=== PATIENT | male | born 1940 | race Caucasian/White ===

== ENCOUNTER → 2019-08-15 | Outpatient (CLI) | payer OTHER ==
[~2019-08-15] MED LIST: ADULT LOW DOSE81 MG PO; ALDACTONE25 MG PO; ALEVE220 M1 PO; ALLEGRA-D 12 H1 EAC1 PO; ALLEGRA-D 24 H1 EACH PO; AMLODIPINE BESY10 MG PO; AUGMENTIN 875875 M1 PO; BENZONATATE100 MG PO; CENTRUM SILVER1 EAC1 PO; COREG6.25 MG PO; COZAAR 25 MG TA25 M2 PO; EDARBYCLOR 40-1 EACH PO; FISH OIL 1,0001 EAC5 PO; FLONASE 0.05%50 MCG NASAL; GLUCOPHAGE500 MG PO; HCTZ PO; LASIX 40 MG TAB40 M2 PO; NICOTINE TRANSD21 M1 TD; NICOTINE TRANSD21 M1 TRANSDERM; POTASSIUM20 PO; PRAVACHOL40 MG PO; PROAIR HFA8.5 GM PO; QUINAPRIL 20 MG20 MG PO; STIOLTO RESPIMAT4 GM IH; TESSALON PERLE100 MG PO; VYTORIN 10-401 EACH PO; XANAX 0.25 MG0.25 MG PO; XOPENEX 0.63 MG/3 M1 INH; ZETIA10 MG PO; ZOSYN 3.3753.375 GM IV
== END ==
LOC: SJCVC 11:21
DX: R94.31 Abnormal electrocardiogram [ECG] [EKG] (principal); I25.10 Atherosclerotic heart disease of native coronary artery without angina pectoris; I11.0 Hypertensive heart disease with heart failure; I50.9 Heart failure, unspecified; I42.9 Cardiomyopathy, unspecified; I34.0 Nonrheumatic mitral (valve) insufficiency; E78.00 Pure hypercholesterolemia, unspecified; I65.23 Occlusion and stenosis of bilateral carotid arteries; I73.9 Peripheral vascular disease, unspecified; Z95.810 Presence of automatic (implantable) cardiac defibrillator

== ENCOUNTER → 2020-02-27 | Outpatient (CLI) | payer OTHER | LOC: SJCVC 13:31 → SJCVCIMAG 13:31 | PROVIDERS: ATTEND Internal Medicine Cardiovascular Disease | DX: Z45.02 Encounter for adjustment and management of automatic implantable cardiac defibrillator (principal); I42.9 Cardiomyopathy, unspecified; I73.9 Peripheral vascular disease, unspecified; I25.10 Atherosclerotic heart disease of native coronary artery without angina pectoris; I50.23 Acute on chronic systolic (congestive) heart failure; E78.00 Pure hypercholesterolemia, unspecified; I34.0 Nonrheumatic mitral (valve) insufficiency; I63.9 Cerebral infarction, unspecified; I65.23 Occlusion and stenosis of bilateral carotid arteries; Z95.810 Presence of automatic (implantable) cardiac defibrillator ==

== ENCOUNTER → 2020-09-03 | Outpatient (CLI) | payer OTHER | LOC: SJCVCIMAG 08:07 | PROVIDERS: ATTEND Internal Medicine Cardiovascular Disease | DX: I34.0 Nonrheumatic mitral (valve) insufficiency (principal); I25.10 Atherosclerotic heart disease of native coronary artery without angina pectoris; I44.7 Left bundle-branch block, unspecified; I11.0 Hypertensive heart disease with heart failure; I50.9 Heart failure, unspecified; I65.23 Occlusion and stenosis of bilateral carotid arteries; D68.59 Other primary thrombophilia; E78.00 Pure hypercholesterolemia, unspecified; E11.9 Type 2 diabetes mellitus without complications; E78.5 Hyperlipidemia, unspecified; F17.210 Nicotine dependence, cigarettes, uncomplicated; Z95.810 Presence of automatic (implantable) cardiac defibrillator; Z98.890 Other specified postprocedural states; Z88.8 Allergy status to other drugs, medicaments and biological substances; Z79.84 Long term (current) use of oral hypoglycemic drugs; Z79.899 Other long term (current) drug therapy; Z86.73 Personal history of transient ischemic attack (TIA), and cerebral infarction without residual deficits ==

== ENCOUNTER → 2020-11-01 | Outpatient (CLI) | payer OTHER ==
[~2020-11-01] MED LIST changes: +ALLOPURINOL 10100 M3 PO; +ELIQUIS5 MG PO; +ENTRESTO 49 MG1 EACH PO; +TORSEMIDE20 MG PO; +TYLENOL325 M1 PO
== END ==
LOC: SJCVC 10:58
PROVIDERS: ATTEND Internal Medicine Cardiovascular Disease
DX: I13.0 Hypertensive heart and chronic kidney disease with heart failure and stage 1 through stage 4 chronic kidney disease, or unspecified chronic kidney disease (principal); I50.23 Acute on chronic systolic (congestive) heart failure; N18.9 Chronic kidney disease, unspecified; E11.22 Type 2 diabetes mellitus with diabetic chronic kidney disease; I44.7 Left bundle-branch block, unspecified; I63.9 Cerebral infarction, unspecified; E78.5 Hyperlipidemia, unspecified; N40.0 Benign prostatic hyperplasia without lower urinary tract symptoms; F17.210 Nicotine dependence, cigarettes, uncomplicated; Z95.810 Presence of automatic (implantable) cardiac defibrillator; Z88.8 Allergy status to other drugs, medicaments and biological substances; Z79.84 Long term (current) use of oral hypoglycemic drugs; Z79.899 Other long term (current) drug therapy

== ENCOUNTER → 2020-11-12 | Outpatient (CLI) | payer OTHER ==
[~2020-11-12] VITALS: Ht 172.7 cm; Wt 104.3 kg
--- NOTE | ~2020-11-12 | P ---
[facility] [address] [place] [address] PROCEDURE REPORT Name: LAYNE CHAVEZ Room #: REG [facility]#: [id number] Admission: 11/12/20 Attend Phys: Robert Silva MD Discharge: Date of : 42 Report #: [id number] THIS REPORT FOR: cc: Nazanin North MD, Jennifer L MD Couchonnal, Luis F. MD ~ DOC #: [id number] Robert Silva MD DATE OF SERVICE: 11/12/2020 PROCEDURE: Biventricular implantable cardioverter defibrillator generator exchange. PREOPERATIVE DIAGNOSIS: Biventricular implantable cardioverter defibrillator at elective replacement interval. POSTOPERATIVE DIAGNOSIS: Biventricular implantable cardioverter defibrillator at elective replacement interval. HISTORY: The patient is a 80-year-old male status post biventricular ICD implantation back on 06/27/2015. His device is at the elective replacement interval. He is here for generator exchange. DESCRIPTION OF PROCEDURE: The patient underwent informed consent. We discussed the details of the procedure including the risks, which include but not limited to bleeding, infection, vascular damage and need for possible lead revisions. He understood these risks and is willing to proceed. The patient was brought to the EP laboratory in a fasting and unsedated state, prepped and draped in a sterile fashion. He received IV antibiotics prior to initiation of the procedure. Next, I injected lidocaine at the incision site. Incision was made, pocket was entered. Old device was disconnected. The leads tested and found to be functioning normally and the new device was connected, tug test performed. Pocket was irrigated with vancomycin and pocket closed in two layers and surgical glue placed in the outer skin layer. The patient awoke neurologically and hemodynamically intact. No complications. No significant bleeding. The explanted device was a Medtronic model #LJTC4PU, serial #[id number]. The newly implanted device was Medtronic, model #ZBQW6UD, serial #[id number]. The leads were all implanted on 06/27/2015. Atrial lead was a 5076, 52 cm, serial #[id number]. RV lead was a 6935, 62 cm, serial #[id number]. The ventricular lead was a 4598, 88 cm, serial #[id number]. Atrial lead demonstrated P-wave 1.8 millivolts, pacing impedance 369 ohms, pacing threshold 0.75 volts at 0.4 milliseconds. The RV lead demonstrated R-waves 18 millivolts, pacing impedance of 456 ohms, pacing threshold 0.75 volts at 0.4 milliseconds. The LV lead demonstrated a pacing impedance of 300 ohms and a pacing threshold of 1.75 volts at 0.4 milliseconds. The device was programmed back to its nominal settings. [facility] [address] [place] [address] PROCEDURE REPORT Name: LAYNE CHAVEZ Room #: REG [facility]#: [id number] Admission: 11/12/20 Attend Phys: Robert Silva MD Discharge: Date of : 42 Report #: [id number] CONCLUSIONS: 1. Successful biventricular implantable cardioverter defibrillator generator exchange. 2. Satisfactory atrial and right ventricular and left ventricular pacing and sensing thresholds. Robert Silva MD [facility] By: [id number] Robert Silva MD /nt
[2020-11-12 11:00] LABS: CALCIUM 8.9 mg/dL (8.5-10.1); CREATININE 1.6 mg/dL (0.7-1.3)
[2020-11-12 11:04] LABS: POTASSIUM 4.8 mmol/L (3.5-5.1)
[2020-11-12 11:11] LABS: ALBUMIN 3.7 g/dL (3.4-5.0); TOTAL BILIRUBIN 0.8 mg/dL (0.2-1.0); TOTAL PROTEIN 6.9 g/dL (6.4-8.2)
[2020-11-12 11:20] LABS: APTT 26.7 Seconds (24.5-32.8); INR 0.89; PROTIME 9.8 Seconds (10.5-12.1)
[2020-11-12 11:43] LABS: ABSOLUTE NEUTROPHILS 4.7 thou/uL (1.4-8.2); BASOPHILS 0.8 % (0.0-2.0); EOSINOPHILS 1.2 % (0.0-3.0); HEMATOCRIT 41.7 % (42.0-52.0); HEMOGLOBIN 13.6 gm/dL (14.0-18.0); LYMPHOCYTES 13.4 % (24.0-44.0); MCH 30.2 pg (26.0-34.0); MCHC 32.7 g/dL (28.0-37.0); MCV 92.4 fL (80.0-100.0); MONOCYTES 9.7 % (1.0-8.0); PLATELET COUNT 140 thou/uL (150-400); POLYS 74.9 % (36.0-66.0); RBC 4.51 mil/uL (4.50-6.00); WBC 6.3 thou/uL (4.0-11.0)
== END | disposition home or self-care (01) ==
LOC: CATH 06:24
PROVIDERS: ATTEND Internal Medicine Cardiovascular Disease
DX: Z45.02 Encounter for adjustment and management of automatic implantable cardiac defibrillator (principal); I42.9 Cardiomyopathy, unspecified; I11.0 Hypertensive heart disease with heart failure; I50.9 Heart failure, unspecified; E11.9 Type 2 diabetes mellitus without complications; I25.2 Old myocardial infarction; E78.5 Hyperlipidemia, unspecified; J44.9 Chronic obstructive pulmonary disease, unspecified; I73.9 Peripheral vascular disease, unspecified; F17.210 Nicotine dependence, cigarettes, uncomplicated; Z98.890 Other specified postprocedural states; Z79.899 Other long term (current) drug therapy; Z79.01 Long term (current) use of anticoagulants; Z86.73 Personal history of transient ischemic attack (TIA), and cerebral infarction without residual deficits; Z88.0 Allergy status to penicillin; Z88.8 Allergy status to other drugs, medicaments and biological substances
CPT/HCPCS: 62110; 62900; 70005

== ENCOUNTER → 2021-03-21 | Outpatient (CLI) | payer OTHER | LOC: SJCVC 13:05 | PROVIDERS: ATTEND Internal Medicine Cardiovascular Disease | DX: I25.10 Atherosclerotic heart disease of native coronary artery without angina pectoris (principal); E78.00 Pure hypercholesterolemia, unspecified; I77.9 Disorder of arteries and arterioles, unspecified; I73.9 Peripheral vascular disease, unspecified; I11.0 Hypertensive heart disease with heart failure; D68.59 Other primary thrombophilia; I50.23 Acute on chronic systolic (congestive) heart failure; Z95.0 Presence of cardiac pacemaker; Z45.02 Encounter for adjustment and management of automatic implantable cardiac defibrillator; Z82.49 Family history of ischemic heart disease and other diseases of the circulatory system; E78.5 Hyperlipidemia, unspecified; F17.210 Nicotine dependence, cigarettes, uncomplicated; Z72.89 Other problems related to lifestyle; Z79.82 Long term (current) use of aspirin; Z79.84 Long term (current) use of oral hypoglycemic drugs; Z88.8 Allergy status to other drugs, medicaments and biological substances; Z79.899 Other long term (current) drug therapy ==